=== PATIENT | male | born 1960 | race Caucasian/White ===

== ENCOUNTER 2018-04-10 13:07 | Emergency (ER) | payer MEDICARE, OTHER, SELFPAY ==
[2018-04-10 14:13] VITALS: BP 159/98; PULSE 70; RESP 20; TEMP 36.7; O2SAT 99; BMI 23.3
--- NOTE | 2018-04-10 15:09 | ED.DIZZY ---
HPI - Dizziness General Chief Complaint: Dizziness Stated Complaint: severe bouts of vertigo, has MS. Time Seen by Provider: 04/10/18 15:09 Source: patient Mode of arrival: ambulatory Limitations: no limitations History of Present Illness HPI Narrative: 57-year-old male with a history of multiple sclerosis not currently on any steroids here for evaluation of episodes of vertigo that have been occurring off and on for the past several days. Does not seem to be positional. States that it started on while he was at the doctor's office and was diagnosed with ???sinusitis ???was given antibiotics. Has also on decongestants he states he has been taking these every day. He states that for the past several days on occasion he has episodes of a sudden onset of vertigo. Has chronic ringing in his ears which does not get worse during the symptoms. Has not passed out. States that the symptoms last approximately 15-20 minutes and then gradually improved. Does have a prescription of meclizine which he has taken. He states that his MS flares are deviation of his right eye and double vision which he is currently having and states that it may be worsening over the past several days/weeks and also left sided weakness which she also says it is worsening over the past couple days. Related Data Home Medications Medication Instructions Recorded Confirmed amoxicillin-pot clavulanate 1 tab PO BID 04/10/18 04/10/18 baclofen 10 mg PO QID 04/10/18 04/10/18 clonazepam 1 tab PO BID 04/10/18 04/10/18 fluticasone 1 spray INTRANASAL DIRECTED 04/10/18 04/10/18 fluticasone-salmeterol [Advair 1 puff INHALATION BID 04/10/18 04/10/18 Diskus] interferon beta-1a (albumin) 1 dose DIRECTED 04/10/18 04/10/18 [Rebif (with albumin)] ketoconazole 1 applic TOPICAL BID 04/10/18 04/10/18 lisinopril 40 mg PO DAILY 04/10/18 04/10/18 meclizine 1 tab PO TID PRN 04/10/18 04/10/18 metoprolol succinate 1 tab PO DAILY 04/10/18 04/10/18 nystatin 1 applic TOPICAL BID 04/10/18 04/10/18 omeprazole 1 cap PO BID 04/10/18 04/10/18 tizanidine 1.5 tab PO QID 04/10/18 04/10/18 Previous Rx's Medication Instructions Recorded meclizine 25 mg PO TID PRN #20 tab 04/10/18 Allergies Allergy/AdvReac Type Severity Reaction Status Date / Time No Known Drug Allergies Allergy Verified 04/10/18 14:19 Review of Systems Constitutional Denies chills, Denies fever(s), Denies headache(s), Denies lethargy and Denies weakness Eyes Reports diplopia Comments: Deviation his right eye ENT Ears, Nose, Mouth, and Throat: Reports vertigo, Reports dizziness, Denies headache(s), Reports tinnitus, Denies sinus pressure, Denies sore throat and Denies throat swelling Cardiovascular Denies chest pain, Denies irregular heart rhythm, Denies lightheadedness, Denies palpitations, Denies dyspnea, Denies dyspnea on exertion and Denies orthopnea Respiratory Denies cough, Denies dyspnea, Denies dyspnea on exertion and Denies wheezing Gastrointestinal Gastrointestinal: Denies abdominal pain, Denies change in bowel habits, Denies diarrhea, Reports nausea and Reports vomiting Comments: Nausea vomiting the time of the vertigo Musculoskeletal Comments: Left-sided Integumentary/Breasts Denies pruritus, Denies erythema, Denies rash and Denies wounds Neurologic Reports vertigo, Reports dizziness, Denies headache(s) and Denies weakness Endocrine Denies palpitations Hematologic/Lymphatic Denies easy bruising Allergic/Immunologic Denies throat swelling and Denies wheezing [facility] Social History Smoking Status: Former smoker Exam Initial Vital Signs Initial Vital Signs: Vital Signs Temperature 98.1 F 04/10/18 14:13 Pulse Rate 70 04/10/18 14:13 Respiratory Rate 20 04/10/18 14:13 Blood Pressure 159/98 H 04/10/18 14:13 Pulse Oximetry 99 04/10/18 14:13 Eyes Other: Patient with lateral deviation of the right eye with this eye is covered and then uncovered consistent with 6 nerve palsy Resp Effort & Inspection: normal respiratory effort, able to speak in complete sentences, no respiratory distress and no use of accessory muscles Auscultation: clear to auscultation bilaterally, no rales, no rhonchi and no wheezes Cardio Rate: regular rate Rhythm: regular rhythm Heart Sounds: no click, no gallops, no murmurs and no rubs Pulses: normal peripheral pulses GI Inspection: non-distended Palpation: soft, no hepatosplenomegaly, No guarding, No pulsatile mass and No tender Auscultation: normal bowel sounds Skin General: no rashes or lesions noted, No jaundice and No petechiae Neuro General: alert, awake and oriented x3 Cranial Nerves: CN's II-XI intact bilaterally Cognition: normal cognition Speech: speech normal Sensory Exam: no sensory deficits noted Course Vital Signs - 8 hr 04/10/18 14:13 04/10/18 16:26 Temperature 98.1 F 98.6 F Pulse Rate 70 67 Respiratory Rate 20 20 Blood Pressure 159/98 H 164/88 H Pulse Oximetry 99 99 MDM - Dizziness ECG Data Attestation: I personally reviewed and interpreted this ECG as follows: Prior ECG tracings: not available for review Interpretation: Time 1417 hr Sinus rhythm Ventricular rate is 72 Normal axis Normal intervals Normal QRS Q-waves in lead [address] T wave changes MDM Narrative Medical decision making narrative: Patient's history of physical exam is consistent with peripheral vertigo. He is asymptomatic the time of my evaluation. He does seem to have worsening of his MS symptoms over the past several days/week. Per the patient's request I talked with his MS neurologist at [phone]. We discussed the patient's symptoms in the indication for IV steroids. The neurologist stated that given his current diagnosis of sinusitis and the fact that he is on antibiotics it would be more prudent to finish the course of antibiotics to see if his symptoms do not improve as his infection improved. She states that the patient could contact her office tomorrow for a follow-up. I discussed all this with the patient. He did expressed understanding of the plan. I discussed the importance of him continuing his antibiotics. Will send home with a chewable version of the meclizine per his request. He was given return precautions. If his symptoms do not improve after his antibiotics then IV steroids would potentially be warranted at that time. He will call his neurologist tomorrow for follow-up Discharge Plan Departure Patient Disposition: Home, Self-Care Clinical Impression: Vertigo Discharge Date/Time: 04/10/18 16:28 Interventions: ED Discharge Assessment Last Done: 04/10/18 16:26 Instructions: Vertigo Activity Restrictions/Additional Instructions: Recommend you call Dr. Martinez's office tomorrow for a follow-up. Take her medication as directed. Return to the emergency department for any new or worsening symptoms Prescriptions: New meclizine 25 mg tablet,chewable 25 mg PO TID PRN (Reason: vertigo) Qty: 20 RF: 0 No Action fluticasone-salmeterol [Advair Diskus] 100-50 mcg/dose blister with device 1 puff Inhalation BID RF: 0 amoxicillin-pot clavulanate 875-125 mg tablet 1 tab PO BID RF: 0 tizanidine 4 mg tablet 1.5 tab PO QID RF: 0 metoprolol succinate 50 mg tablet extended release 24 hr 1 tab PO DAILY RF: 0 clonazepam 1 mg tablet 1 tab PO BID RF: 0 meclizine 25 mg tablet 1 tab PO TID PRN (Reason: Dizziness) RF: 0 baclofen 10 mg tablet 10 mg PO QID RF: 0 nystatin 100,000 unit/gram cream 1 applic Topical BID RF: 0 omeprazole 20 mg capsule,delayed release(DR/EC) 1 cap PO BID RF: 0 ketoconazole 2 % cream 1 applic Topical BID RF: 0 lisinopril 40 mg tablet 40 mg PO DAILY RF: 0 fluticasone 50 mcg/actuation spray,suspension 1 spray Intranasal DIRECTED RF: 0 interferon beta-1a (albumin) [Rebif (with albumin)] 44 mcg/0.5 mL syringe 1 dose DIRECTED RF: 0
[2018-04-10 16:26] VITALS: BP 164/88; PULSE 67; RESP 20; TEMP 37; O2SAT 99
== END 2018-04-10 16:28 | disposition home or self-care (01) ==
PROVIDERS: Emergency Provider Emergency Medicine; PCP Physician Assistant
DX: R42 Dizziness and giddiness (principal)
CPT/HCPCS: 93005; 99282; 99283